=== PATIENT | female | born 1940 | race African-American/Black ===

== ENCOUNTER 2021-10-25 16:18 | Inpatient (IN) | payer MEDICARE, MEDICAID ==
[~2021-10-25] VITALS: Ht 162.6 cm; Wt 76.7 kg
[2021-10-25 19:31] LABS: CHLORIDE 92 mEq/L (98-107)
[2021-10-25 19:39] LABS: HEMATOCRIT. 34.5 % (36.0-48.0); HEMOGLOBIN. 11.2 g/dL (12.0-16.0); MEAN CORPUSCULAR HEMOGLOBIN 28.5 pg (28.0-32.0); MEAN CORPUSCULAR VOLUME 87.9 fL (81.0-99.0); MEAN PLATELET VOLUME 8.6 fl (7.4-10.4); PLATELET 289 x1000/uL (130-400); RED BLOOD CELL COUNT 3.93 mill/uL (4.2-5.4); RED CELL DISTRIBUTION WIDTH 19.2 % (11.6-14.6)
[2021-10-25] MEDS ORDERED: SODIUM CHLORIDE 0.9% 1,000 ML IV ONE (20:00)
[2021-10-25] MEDS ORDERED: PIPERACILLIN/TAZ 3.375G PREMIX 50 ML IV ONE (20:00)
[2021-10-25 21:49] LABS: PLATELET ESTIMATE NORMAL
[2021-10-26] MEDS ORDERED: ONDANSETRON HCL 4MG/2ML INJ IV PRN (06:45)
[2021-10-26] MEDS ORDERED: ACETAMINOPHEN 325MG TABLET PO NR (09:30)
[2021-10-26 09:47] LABS: BASOPHILS % 0.5 % (0.0-2.0); EOSINOPHILS % 1.9 % (0.0-5.0); HEMOGLOBIN. 10.5 g/dL (12.0-16.0); LYMPHOCYTES % 12.4 % (20.0-50.0); MEAN CORPUSCULAR HEMOGLOBIN 28.5 pg (28.0-32.0); MEAN CORPUSCULAR VOLUME 87.3 fL (81.0-99.0); MEAN PLATELET VOLUME 8.5 fl (7.4-10.4); MONOCYTES % 9.5 % (2.0-8.0); NEUTROPHILS % 75.7 % (40.0-76.0); PLATELET 280 x1000/uL (130-400); RED BLOOD CELL COUNT 3.67 mill/uL (4.2-5.4); RED CELL DISTRIBUTION WIDTH 19.2 % (11.6-14.6)
[2021-10-26 09:50] LABS: CHLORIDE 92 mEq/L (98-107)
[2021-10-26 09:57] LABS: INR 1.1; PROTHROMBIN TIME 11.4 sec (9.6-11.0)
[2021-10-26 10:05] LABS: PHOSPHORUS 7.6 mg/dL (2.5-4.9); TOTAL IRON BINDING CAPACITY 194 ug/dL (250-450)
[2021-10-26] MEDS ORDERED: PIPERACILLIN/TAZ 3.375G PREMIX 50 ML IV NR (10:15)
[2021-10-26 10:24] LABS: VITAMIN B12 SERUM 952 pg/mL (211-911)
[2021-10-26 12:03] VITALS: BP 152/85
[2021-10-26 12:52] VITALS: BP 152/85
[2021-10-26 16:27] VITALS: BP 115/52
[2021-10-26 16:33] LABS: CREATINE KINASE 22 IU/L (26-192); CREATINE KINASE MB FRACTION < 1.0 ng/mL (0.5-3.6)
[2021-10-26] MEDS ORDERED: ACETAMINOPHEN 325MG TABLET PO PRN (19:00)
[2021-10-26] MEDS ORDERED: AMLO2.5T2 MT (19:09)
[2021-10-26] MEDS ORDERED: COR3 MT (19:09)
[2021-10-26] MEDS ORDERED: ONDA4TAB11 PO (19:09)
[2021-10-26] MEDS ORDERED: LISI-652 PO (19:09)
[2021-10-26 20:00] VITALS: BP 152/92
[2021-10-26 21:14] LABS: HEPATITIS B SURFACE ANTIGEN NEGATIVE
[2021-10-26] MEDS: HYDROCODONE/ACETAMINOPHEN 5/325MG TABLET PO PRN (22:25)
[2021-10-27] VITALS: BP 124/65
[2021-10-27 00:22] LABS: CREATINE KINASE 21 IU/L (26-192); CREATINE KINASE MB FRACTION < 1.0 ng/mL (0.5-3.6)
[2021-10-27 07:15] LABS: BASOPHILS % 0.5 % (0.0-2.0); EOSINOPHILS % 1.5 % (0.0-5.0); HEMATOCRIT. 32.4 % (36.0-48.0); HEMOGLOBIN. 10.6 g/dL (12.0-16.0); LYMPHOCYTES % 14.5 % (20.0-50.0); MEAN CORPUSCULAR HEMOGLOBIN 28.3 pg (28.0-32.0); MEAN CORPUSCULAR VOLUME 86.8 fL (81.0-99.0); MEAN PLATELET VOLUME 8.6 fl (7.4-10.4); MONOCYTES % 14.4 % (2.0-8.0); NEUTROPHILS % 69.1 % (40.0-76.0); PLATELET 313 x1000/uL (130-400); RED BLOOD CELL COUNT 3.73 mill/uL (4.2-5.4); RED CELL DISTRIBUTION WIDTH 19.6 % (11.6-14.6)
[2021-10-27 07:55] VITALS: BP 113/74
[2021-10-27 08:02] LABS: PHOSPHORUS 5.5 mg/dL (2.5-4.9)
[2021-10-27] MEDS ORDERED: CALCIUM GLUCONATE 100MG/ML 10ML VIAL IV ONE (08:30)
[2021-10-27] MEDS ORDERED: ATROPINE SULFATE 1MG/10ML SYR IV PRN (09:15)
[2021-10-27] MEDS ORDERED: CALCIUM GLUCONATE 1GM PREMIX 50 ML IV SCH (10:00)
[2021-10-27 12:23] VITALS: BP_SYST 104; BP_SYST 115; BP_SYST 117; BP_DIAS 57; BP_DIAS 58; BP_DIAS 63
[2021-10-27] MEDS: CALCIUM ACETATE 667MG CAPSULE PO SCH ×2 (13:24→18:23)
[2021-10-27 15:59] VITALS: BP 102/60
[2021-10-27] MEDS: HYDROCODONE/ACETAMINOPHEN 5/325MG TABLET PO PRN (16:51)
[2021-10-27 19:40] VITALS: BP 98/56
[2021-10-28 00:01] VITALS: BP 108/58
[2021-10-28 03:30] VITALS: BP 99/57
[2021-10-28] MEDS: HYDROCODONE/ACETAMINOPHEN 5/325MG TABLET PO PRN ×3 (06:31→18:47)
[2021-10-28 06:51] LABS: BASOPHILS % 0.7 % (0.0-2.0); EOSINOPHILS % 1.5 % (0.0-5.0); HEMATOCRIT. 35.2 % (36.0-48.0); HEMOGLOBIN. 11.6 g/dL (12.0-16.0); LYMPHOCYTES % 13.9 % (20.0-50.0); MEAN CORPUSCULAR HEMOGLOBIN 28.5 pg (28.0-32.0); MEAN CORPUSCULAR VOLUME 86.5 fL (81.0-99.0); MEAN PLATELET VOLUME 9.1 fl (7.4-10.4); NEUTROPHILS % 70.9 % (40.0-76.0); PLATELET 329 x1000/uL (130-400); RED BLOOD CELL COUNT 4.07 mill/uL (4.2-5.4); RED CELL DISTRIBUTION WIDTH 19.8 % (11.6-14.6)
[2021-10-28 07:08] LABS: PHOSPHORUS 6.3 mg/dL (2.5-4.9)
[2021-10-28] MEDS: CALCIUM ACETATE 667MG CAPSULE PO SCH ×3 (07:50→18:42)
[2021-10-28 08:00] VITALS: BP 95/57
[2021-10-28] MEDS ORDERED: CEFAZOLIN 1000MG PREMIX 0 ML IV ONE (10:50)
[2021-10-28] MEDS ORDERED: IODIXANOL 320MG/ML 100 ML BOTTLE IV ONE (10:50)
[2021-10-28] MEDS ORDERED: LIDOCAINE HCL 1% 10 MG/ML 10ML VIAL ONE ×2 (10:50→12:53)
[2021-10-28] MEDS ORDERED: FENTANYL CITRATE/PF 50MCG/ML 2ML VIAL ONE ×2 (10:50→12:51)
[2021-10-28] MEDS ORDERED: MIDAZOLAM HCL 2 MG/2 ML VIAL ONE ×4 (10:50→14:19)
[2021-10-28 12:00] VITALS: BP 95/56
[2021-10-28] MEDS ORDERED: CEFAZOLIN SODIUM 1000MG/VIAL ONE (12:51)
[2021-10-28] MEDS ORDERED: GENTAMICIN/NS IRRIGATION 500 ML IR ONE (12:53)
[2021-10-28] MEDS ORDERED: GENTAMICIN SULF 40MG/ML 2ML VIAL ONE (12:53)
[2021-10-28] MEDS ORDERED: DIPHENHYDRAMINE 50MG/ML VIAL ONE (13:34)
[2021-10-28] MEDS ORDERED: HEPARIN 1000 UNITS/ML 10ML ONE (14:27)
[2021-10-28] MEDS ORDERED: HYDROCODONE/ACETAMINOPHEN 5/325MG TABLET PO PRN (15:00)
[2021-10-28] MEDS ORDERED: NALOXONE HCL 0.4MG/ML VIAL IV PRN (15:15)
[2021-10-28 16:50] VITALS: BP 130/71
[2021-10-28 20:00] VITALS: BP 126/62
[2021-10-29] VITALS: BP 113/60
[2021-10-29] MEDS: HYDROCODONE/ACETAMINOPHEN 5/325MG TABLET PO PRN ×3 (01:41→20:45)
[2021-10-29 04:00] VITALS: BP 97/54
[2021-10-29 06:31] LABS: BASOPHILS % 0.6 % (0.0-2.0); EOSINOPHILS % 2.2 % (0.0-5.0); HEMATOCRIT. 32.6 % (36.0-48.0); HEMOGLOBIN. 10.4 g/dL (12.0-16.0); LYMPHOCYTES % 13.5 % (20.0-50.0); MEAN CORPUSCULAR HEMOGLOBIN 28.1 pg (28.0-32.0); MEAN CORPUSCULAR VOLUME 87.8 fL (81.0-99.0); MEAN PLATELET VOLUME 9.1 fl (7.4-10.4); MONOCYTES % 13.8 % (2.0-8.0); NEUTROPHILS % 69.9 % (40.0-76.0); PLATELET 302 x1000/uL (130-400); RED BLOOD CELL COUNT 3.71 mill/uL (4.2-5.4); RED CELL DISTRIBUTION WIDTH 19.6 % (11.6-14.6)
[2021-10-29 06:56] LABS: PHOSPHORUS 5.7 mg/dL (2.5-4.9)
[2021-10-29 07:40] VITALS: BP 116/69
[2021-10-29] MEDS: METOPROLOL TARTRATE 25MG TABLET PO SCH ×2 (09:14→20:44)
[2021-10-29] MEDS: CALCIUM ACETATE 667MG CAPSULE PO SCH ×3 (09:14→17:33)
[2021-10-29] MEDS: MORPHINE SULFATE 2 MG/ML CPJ (NOT FOR IM USE) IV PRN (09:15)
[2021-10-29] MEDS ORDERED: SODIUM POLYSTYRENE SULFONATE 15 G/60 ML BOT PO SCH (09:45)
[2021-10-29] MEDS ORDERED: METO25TA6 PO (10:01)
[2021-10-29] MEDS ORDERED: CALC667C PO (10:01)
[2021-10-29 12:13] VITALS: BP 105/64
[2021-10-29] MEDS: CEFAZOLIN 1000MG PREMIX 50 ML IV SCH (12:41)
[2021-10-29 16:11] VITALS: BP 132/63
[2021-10-29 20:00] VITALS: BP 137/77
[2021-10-29] MEDS ORDERED: CEFAZOLIN SODIUM 1000MG/VIAL IV SCH (22:00)
[2021-10-30] VITALS: BP 106/57
[2021-10-30] MEDS: HYDROCODONE/ACETAMINOPHEN 5/325MG TABLET PO PRN (02:07)
[2021-10-30 04:00] VITALS: BP 127/92
[2021-10-30] MEDS: MORPHINE SULFATE 2 MG/ML CPJ (NOT FOR IM USE) IV PRN ×3 (06:40→13:43)
[2021-10-30 07:36] VITALS: BP 148/81
[2021-10-30] MEDS: METOPROLOL TARTRATE 25MG TABLET PO SCH ×2 (08:51→20:25)
[2021-10-30] MEDS: CALCIUM ACETATE 667MG CAPSULE PO SCH ×3 (08:51→16:57)
[2021-10-30 09:13] LABS: BASOPHILS % 0.4 % (0.0-2.0); EOSINOPHILS % 2.9 % (0.0-5.0); HEMATOCRIT. 33.2 % (36.0-48.0); HEMOGLOBIN. 10.8 g/dL (12.0-16.0); LYMPHOCYTES % 12.2 % (20.0-50.0); MEAN CORPUSCULAR HEMOGLOBIN 28.2 pg (28.0-32.0); MEAN CORPUSCULAR VOLUME 86.7 fL (81.0-99.0); MEAN PLATELET VOLUME 8.6 fl (7.4-10.4); MONOCYTES % 12.3 % (2.0-8.0); NEUTROPHILS % 72.2 % (40.0-76.0); PLATELET 297 x1000/uL (130-400); RED BLOOD CELL COUNT 3.83 mill/uL (4.2-5.4); RED CELL DISTRIBUTION WIDTH 19.5 % (11.6-14.6)
[2021-10-30 09:34] LABS: PHOSPHORUS 6.4 mg/dL (2.5-4.9)
[2021-10-30 11:54] VITALS: BP 130/70
[2021-10-30] MEDS: CEFAZOLIN 1000MG PREMIX 50 ML IV SCH (13:43)
[2021-10-30 16:00] VITALS: BP 129/82
[2021-10-30 20:00] VITALS: BP 161/75
[2021-10-31] VITALS: BP 110/82
[2021-10-31 04:00] VITALS: BP 135/83
[2021-10-31 05:31] VITALS: BP 134/88
[2021-10-31 07:39] LABS: BASOPHILS % 0.4 % (0.0-2.0); EOSINOPHILS % 1.3 % (0.0-5.0); HEMATOCRIT. 30.6 % (36.0-48.0); HEMOGLOBIN. 10.1 g/dL (12.0-16.0); LYMPHOCYTES % 8.8 % (20.0-50.0); MEAN CORPUSCULAR HEMOGLOBIN 28.5 pg (28.0-32.0); MEAN CORPUSCULAR VOLUME 86.7 fL (81.0-99.0); MEAN PLATELET VOLUME 8.6 fl (7.4-10.4); MONOCYTES % 11.4 % (2.0-8.0); NEUTROPHILS % 78.1 % (40.0-76.0); PLATELET 266 x1000/uL (130-400); RED BLOOD CELL COUNT 3.53 mill/uL (4.2-5.4); RED CELL DISTRIBUTION WIDTH 19.2 % (11.6-14.6)
[2021-10-31 07:56] LABS: PHOSPHORUS 5.1 mg/dL (2.5-4.9)
[2021-10-31 08:00] VITALS: BP 99/63
[2021-10-31] MEDS: METOPROLOL TARTRATE 25MG TABLET PO SCH (08:30)
[2021-10-31] MEDS: CALCIUM ACETATE 667MG CAPSULE PO SCH (08:30)
[2021-10-31 10:10] VITALS: BP 99/63
== END 2021-10-31 18:06 | disposition home or self-care (01) | DRG 171 ==
LOC: ER 16:48 → MICUSO 20:47 → EDBEDREQ 21:13 → EDBEDREQTM 21:13 → 6WST 10-26 11:49
PROVIDERS: ADMIT Family Medicine; ATTEND Family Medicine
PROC: 5A1D70Z Performance of Urinary Filtration, Intermittent, Less than 6 Hours Per Day (ICD-10-PCS; principal; 2021-10-26)
PROC: 5A1D70Z Performance of Urinary Filtration, Intermittent, Less than 6 Hours Per Day (ICD-10-PCS; 2021-10-28)
PROC: 0JH606Z Insertion of Pacemaker, Dual Chamber into Chest Subcutaneous Tissue and Fascia, Open Approach (ICD-10-PCS; 2021-10-28)
PROC: 02H60JZ Insertion of Pacemaker Lead into Right Atrium, Open Approach (ICD-10-PCS; 2021-10-28)
PROC: 02HK0JZ Insertion of Pacemaker Lead into Right Ventricle, Open Approach (ICD-10-PCS; 2021-10-28)
PROC: 5A1D70Z Performance of Urinary Filtration, Intermittent, Less than 6 Hours Per Day (ICD-10-PCS; 2021-10-30)
DX: I49.5 Sick sinus syndrome (principal); E43 Unspecified severe protein-calorie malnutrition; I12.0 Hypertensive chronic kidney disease with stage 5 chronic kidney disease or end stage renal disease; D63.1 Anemia in chronic kidney disease; N18.6 End stage renal disease; E87.1 Hypo-osmolality and hyponatremia; E78.5 Hyperlipidemia, unspecified; Z20.822 Contact with and (suspected) exposure to COVID-19; Z88.8 Allergy status to other drugs, medicaments and biological substances; Z79.899 Other long term (current) drug therapy; Z99.2 Dependence on renal dialysis; Z91.15 Patient's noncompliance with renal dialysis; Z68.29 Body mass index [BMI] 29.0-29.9, adult; Z82.49 Family history of ischemic heart disease and other diseases of the circulatory system; Z87.891 Personal history of nicotine dependence; Z90.13 Acquired absence of bilateral breasts and nipples
CPT/HCPCS: 33208; 36415; 71045; 75820; 80048; 80053; 82550; 82553; 82607; 83540; 83550; 83605; 83735; 83880; 84100; 84145; 84443; 84484; 85025; 86140; 86705; 86709; 86803; 87340; 87426; 93005; 93306; 93880; 97162; 99285; C1785; C1898; J0610; J0690; J1200; J1580; J1644; J2250; J2270; J3010; J3490; J7030; J7060; Q9967